=== PATIENT | female | born 1940 | race Caucasian/White ===

== ENCOUNTER 2018-01-23 15:26 | Emergency (ER) | payer MEDICARE, BC ==
[~2018-01-23] VITALS: Ht 165.1 cm; Wt 59.1 kg
[2018-01-23 15:27] VITALS: TEMP 97.2
[2018-01-23] MEDS ORDERED: PROTONIX 40MG T40 MG PO (15:30)
[2018-01-23] MEDS ORDERED: B-121000 MCG PO (15:31)
[2018-01-23] MEDS ORDERED: VITAMIN D 1001000 IU PO (15:31)
[2018-01-23] MEDS ORDERED: LUTEIN20 M1 PO (15:31)
[2018-01-23] MEDS ORDERED: EPA FISH OIL1 SGL PO (15:32)
[2018-01-23] MEDS ORDERED: CALCIUM CARBON650 M2 PO (15:32)
[2018-01-23] MEDS ORDERED: MYSOLINE 5050 MG/TAB PO (15:34)
[2018-01-23] MEDS ORDERED: FLAX OIL1000 MG PO (15:35)
[2018-01-23] MEDS ORDERED: NORCO 325 MG-51 TAB PO (17:30)
[2018-01-23 18:04] VITALS: BP 142/89; PULSE 77
== END 2018-01-23 18:05 | disposition home or self-care (01) ==
LOC: COL.ER 15:26
DX: S52.121A Displaced fracture of head of right radius, initial encounter for closed fracture (principal); W07.XXXA Fall from chair, initial encounter; Y92.009 Unspecified place in unspecified non-institutional (private) residence as the place of occurrence of the external cause
CPT/HCPCS: J1885; J2704; J3010; J7030; Q4050